=== PATIENT | female | born 1965 | race Caucasian/White ===

== ENCOUNTER 2016-10-02 22:57 | Observation (INO) ==
[2016-10-03 00:07] LABS: Basophils # 0.1 K/mcL (0.0-0.2); Basophils % 0.3 %; Eosinophils % 0.1 %; Hematocrit 36.2 % (35.3-44.9); Hemoglobin 11.9 g/dL (11.5-15.4); Immature Granulocytes % 0.4 % (0-4); Immature Platelets 2.4 % (1.1-6.1); Lymphocytes # 1.6 K/mcL (0.6-4.6); Lymphocytes % 8.2 %; Mean Corpuscular HGB Conc 32.9 g/dL (31.6-35.5); Mean Corpuscular Hemoglobin 26.4 pg (28.0-33.3); Mean Corpuscular Volume 80.4 fL (83.0-100.0); Mean Platelet Volume 9.4 fL (9.4-12.4); Monocytes # 0.6 K/mcL (0.0-1.3); Monocytes % 3.4 %; Neutrophils # 16.5 K/mcL (1.6-8.9); Platelet Count 461 K/mcL (140-400); Segmented Neutrophils % 87.6 %
[2016-10-03 00:17] LABS: INR 1.1; Prothrombin Time 11.8 Seconds (9.4-12.1)
[2016-10-03 00:18] LABS: BUN/Creatinine Ratio 16 (6-26); Blood Urea Nitrogen 13 mg/dL (7-20); Calcium 9.7 mg/dL (8.6-10.8); Carbon Dioxide 23 mEq/L (19-29); Chloride 102 mEq/L (98-109); Glucose 163 mg/dL (70-99); Osmolality,Calculated 290 (280-300); Potassium 3.7 mEq/L (3.5-4.5); Sodium 138 mEq/L (136-145); eGFR For African Americans > 60 (> 60); eGFR For Non-African Americans > 60 (> 60)
[2016-10-03] MEDS ORDERED: Aspirin 81 MG TAB.CHEW PO ONE (00:28)
[2016-10-03] MEDS ORDERED: Nitroglycerin 0.4 MG TAB.SUBL SL ONE (00:28)
[2016-10-03] MEDS ORDERED: Ondansetron 4 MG/2 ML VIAL IVP STA (00:36)
--- NOTE | 2016-10-03 00:37 | Emergency Department Note ---
Disposition Clinical Impression: Chest pain Qualifiers: Chest pain type: unspecified Qualified Code(s): R07.9 - Chest pain, unspecified Disposition: Admitted As Inpatient Chest Pain HPI - General Chief Complaint: ED General Medical Stated Complaint: chest pain Time Seen by Provider: 10/02/16 23:53 Source: patient, family Limitations: no limitations Vital Signs Reviewed: Yes Nursing Notes Reviewed: Yes - History of Present Illness HPI Narrative: Mrs. Montoya, a 51yo female, presents from home by POV. Vertigo, nausea, diaphoresis, bilateral arm heaviness, chest discomfort. Onset 17:30 this evening with vertigo and nausea. At 20:30 this progressed to bilateral arm heaviness with diaphoresis and substernal chest discomfort. Home BP was measured as 175/110. Patient has no history of hypertension. Patient's nausea , diaphoresis, vertigo, arm heaviness, chest discomfort persist to presentation. PMH: GERD. Denies hypertension, hyperlipidemia, CAD. PSH: Cholecystectomy. Family history: Unknown; patient is adopted. Admits: Vertigo, nausea, diaphoresis, chest discomfort, bilateral arm heaviness. Denies: Fever, chills, abdominal pain, changes in bowel or bladder, flank pain, weakness, numbness, tingling, headache, changes in vision. Severity scale (1-10): 0 - Related Data Allergies Allergy/AdvReac Type Severity Reaction Status Date / Time prednisone AdvReac Palpitation Verified 10/02/16 23:04 s All systems ED: reviewed and negative except as stated. (As per history of present illness) Chest Pain PMH - Past Medical History Medical history: Reports: no medical history Psychiatric history: Reports: anxiety - Social History Smoking Status: Never smoker Alcohol use: Reports: none Drug use: Reports: none Physical Exam General: Patient is alert, oriented, is holding an emesis bag with eyes closed. She prefers sitting upright in a chair to Gaurav on the cot. HEENT: No facial asymmetry. Head is normocephalic and atraumatic. Trachea midline. Cardiovascular: Heart regular rate and rhythm without clicks, rubs, gallops, or murmurs. No JVD. PMI nondisplaced. No pedal edema. Respiratory: Symmetric chest rise with good respiratory effort. Bilateral breath sounds are clear without wheezing, crackles, or rhonchi. Abdomen: Bowel sounds present normoactive x-4 quadrants. Abdomen is soft, nondistended, and nontender. No organomegaly noted. Psych: Patient's affect is appropriate for situation. - General Limitations: no limitations General appearance: alert Course Course Narrative: Performed chest pain workup with the addition of several abdominal labs. Will give aspirin, nitroglycerin trial, anti-medic and reevaluate. Patient's story is suspicious for atypical chest pain. She has no knowledge of her family history. Anticipate admission for chest pain rule out. Lab work shows leukocytosis however the remainder of her lab work is unremarkable specifically normal renal function, normal hepatic function, negative lipase, negative troponin. EKG concerning for T-wave inversion in V1, V2, V3. Spoke with patient regarding her findings as well as like clinical concerns for potential ACS and the need for further workup. She agrees to come in to the hospital for continued evaluation. Spoke with Dr. Smith who agrees to accept the patient with admitting diagnosis of chest pain in the intention to rule out ACS. Vital Signs Temperature 97.3 F L 10/02/16 22:59 Pulse Rate 85 10/02/16 22:59 Respiratory Rate 18 10/02/16 22:59 Blood Pressure 154/86 10/02/16 22:59 O2 Sat by Pulse Oximetry 100 10/02/16 22:59 Temperature 97.3 F L 10/02/16 22:59 Pulse Rate 80 10/03/16 01:27 Respiratory Rate 18 10/03/16 04:33 Blood Pressure 117/66 10/03/16 04:33 O2 Sat by Pulse Oximetry 98 10/03/16 01:27 Oxygen Delivery Oxygen Delivery Nasal Cannula Chest Pain - Lab Data Lab results reviewed: Yes I reviewed the patient's lab results. Result diagrams: 10/03/16 00:01 10/03/16 00:01 Lab Results 10/03/16 10/03/16 10/03/16 Range/Units 00:01 00:01 00:01 WBC 18.8 H (4.3-11.1) K/mcL RBC 4.50 (3.82-4.97) M/mcL Hgb 11.9 (11.5-15.4) g/dL Hct 36.2 (35.3-44.9) % MCV 80.4 L (83.0-100.0) fL MCH 26.4 L (28.0-33.3) pg MCHC 32.9 (31.6-35.5) g/dL RDW 14.0 (11.5-14.5) % Plt Count 461 H (140-400) K/mcL MPV 9.4 (9.4-12.4) fL Immature Gran % 0.4 (0-4) % Seg Neutrophils % 87.6 % Lymphocytes % 8.2 % Monocytes % 3.4 % Eosinophils % 0.1 % Basophils % 0.3 % Neutrophils # 16.5 H (1.6-8.9) K/mcL Lymphocytes # 1.6 (0.6-4.6) K/mcL Monocytes # 0.6 (0.0-1.3) K/mcL Eosinophils # 0.0 (0.0-0.6) K/mcL Basophils # 0.1 (0.0-0.2) K/mcL Immature Plt Fraction 2.4 (1.1-6.1) % PT 11.8 (9.4-12.1) Seconds INR 1.1 APTT 35.0 (26.0-36.0) Seconds Sodium 138 (136-145) mEq/L Potassium 3.7 (3.5-4.5) mEq/L Chloride 102 (98-109) mEq/L Carbon Dioxide 23 (19-29) mEq/L BUN 13 (7-20) mg/dL Creatinine 0.82 (0.57-1.11) mg/dL Est GFR ( Amer) > 60 (> 60) Est GFR (Non-Af Amer) > 60 (> 60) BUN/Creatinine Ratio 16 (6-26) Glucose 163 H (70-99) mg/dL Calculated Osmolality 290 (280-300) Calcium 9.7 (8.6-10.8) mg/dL Total Bilirubin 0.4 (0.2-1.2) mg/dL Direct Bilirubin 0.1 (0.0-0.5) mg/dL Indirect Bilirubin 0.3 (0.0-1.2) mg/dL AST 13 (5-34) Units/L ALT < 6 (0-55) Units/L Alkaline Phosphatase 114 (38-126) Units/L Troponin I (0-0.03) ng/mL Serum Total Protein 7.9 (6.0-8.3) g/dL Albumin 4.0 (3.5-5.0) g/dL Globulin 3.9 H (2.4-3.5) g/dL Albumin/Globulin Ratio 1.0 L (1.1-2.2) Lipase 15 (8-78) Units/L 10/03/16 Range/Units 00:01 WBC (4.3-11.1) K/mcL RBC (3.82-4.97) M/mcL Hgb (11.5-15.4) g/dL Hct (35.3-44.9) % MCV (83.0-100.0) fL MCH (28.0-33.3) pg MCHC (31.6-35.5) g/dL RDW (11.5-14.5) % Plt Count (140-400) K/mcL MPV (9.4-12.4) fL Immature Gran % (0-4) % Seg Neutrophils % % Lymphocytes % % Monocytes % % Eosinophils % % Basophils % % Neutrophils # (1.6-8.9) K/mcL Lymphocytes # (0.6-4.6) K/mcL Monocytes # (0.0-1.3) K/mcL Eosinophils # (0.0-0.6) K/mcL Basophils # (0.0-0.2) K/mcL Immature Plt Fraction (1.1-6.1) % PT (9.4-12.1) Seconds INR APTT (26.0-36.0) Seconds Sodium (136-145) mEq/L Potassium (3.5-4.5) mEq/L Chloride (98-109) mEq/L Carbon Dioxide (19-29) mEq/L BUN (7-20) mg/dL Creatinine (0.57-1.11) mg/dL Est GFR ( Amer) (> 60) Est GFR (Non-Af Amer) (> 60) BUN/Creatinine Ratio (6-26) Glucose (70-99) mg/dL Calculated Osmolality (280-300) Calcium (8.6-10.8) mg/dL Total Bilirubin (0.2-1.2) mg/dL Direct Bilirubin (0.0-0.5) mg/dL Indirect Bilirubin (0.0-1.2) mg/dL AST (5-34) Units/L ALT (0-55) Units/L Alkaline Phosphatase (38-126) Units/L Troponin I 0.01 (0-0.03) ng/mL Serum Total Protein (6.0-8.3) g/dL Albumin (3.5-5.0) g/dL Globulin (2.4-3.5) g/dL Albumin/Globulin Ratio (1.1-2.2) Lipase (8-78) Units/L - Radiology Data Radiology results reviewed: Yes I reviewed the patient's radiology results. Chest X-Ray 10/02/16 23:33 IMPRESSION: Normal chest. D/ / Volodymyr Aquino MD / Volodymyr Aquino MD Interpreting Provider: Volodymyr Aquino MD - EKG Data EKG attestation: Yes I reviewed and interpreted this EKG. EKG results narrative: JG data 10/02/16 shows sinus rhythm with a rate of 76. Slightly prolonged [place] interval at 270 ms. QRS 80, QT/QTC 396/426. Normal axis. RSR prime in V1 showing possible right interventricular conduction delay. Inversion in V1 and V2. Compared to previous EKG dated 05/16/2016 showed T-wave changes to be new. Heart Score - Score History: Moderately Suspicious EKG: Non Specific repolarisation Disturbance Age: 45-65 Risk Factors: 1-2 risk factors (default 1 risk factor because family hx unknown) Troponin: Less than normal limit HEART Score Total: 4 Attestation Statement - Attestation Attestation: For this encounter, I have reviewed the resident, RESIDENTIAL ELECTRICIAN, or PA documentation, treatment plan, and medical decision making; and I have had face to face time with this patient. 51-year-old female presents with concerns of chest pain and nausea, vomiting, vertigo. Patient states her chest pain started within the past few hours prior to arrival, was associated with nausea, vomiting, increased weakness and fatigue. Pain described as a pressure in the left chest which radiated to the bilateral arms and is described as a heaviness in the arms. Patient denies recent trauma. Patient states that she has had tenderness intermittently over the past 2 months. Denies vertigo symptoms until today. Vertigo symptoms are described as a room spinning sensation which is worse with movement of her head. Patient does have left beating nystagmus on exam. Patient given meclizine and aspirin for the chest pain and vertiginous symptoms. It is possible that the patient's chest pain is secondary to vomiting however patient is unsure if the chest pain started before or after her periods of emesis. Patient will be admitted for further care and evaluation inpatient comfortable with the plan.
[2016-10-03 00:57] LABS: Alanine Aminotransferase < 6 Units/L (0-55); Alkaline Phosphatase 114 Units/L (38-126); Aspartate Amino Transferase 13 Units/L (5-34); Bilirubin,Direct 0.1 mg/dL (0.0-0.5); Bilirubin,Indirect 0.3 mg/dL (0.0-1.2); Bilirubin,Total 0.4 mg/dL (0.2-1.2); Globulin 3.9 g/dL (2.4-3.5); Lipase 15 Units/L (8-78); Total Protein 7.9 g/dL (6.0-8.3)
[2016-10-03] MEDS ORDERED: Metoclopramide 10 MG/2 ML VIAL IVP ONE (02:33)
[2016-10-03] MEDS ORDERED: Ondansetron 4 MG/2 ML VIAL IVP PRN (06:30)
[2016-10-03] MEDS ORDERED: Acetaminophen 325 MG TABLET PO PRN (06:30)
[2016-10-03] MEDS ORDERED: 0.9 % Sodium Chloride 1,000 ML IVC SCH (06:30)
[2016-10-03] MEDS ORDERED: Naloxone 0.4 MG/ML INJ IVP PRN (06:30)
--- NOTE | 2016-10-03 06:37 | Internal Med History&Physical ---
Date of Encounter: 10/03/16 Time of Encounter: 05:00 Assessment and Plan (1) Benign paroxysmal positional vertigo Current visit: Yes Status: Acute We will treat the patient with meclizine and provide IV fluid hydration. Qualifiers: Laterality: unspecified laterality Qualified Code(s): H81.10 - Benign paroxysmal vertigo, unspecified ear (2) Precordial chest pain Current visit: Yes Status: Acute Will monitor patient on telemetry. Trend troponin. Obtain stress test and echocardiogram. The patient has an unknown family history which potentially puts her at higher risk for a cardiovascular event. (3) Elevated WBCs Current visit: Yes Status: Acute Possible stress response. No sign of infection. We will monitor in the morning. Qualifiers: Leukocytosis type: unspecified Qualified Code(s): D72.829 - Elevated white blood cell count, unspecified (4) Dehydration Current visit: Yes Status: Acute IV normal saline fluid hydration (5) DVT prophylaxis Current visit: Yes Status: Acute Encourage early ambulation. She does not require pharmacological prophylaxis. Internal Medicine - H&P: HPI Chief complaint: Vertigo Admitted From: Emergency Dept Plans for Post Hospital Care: Home History of present illness: Ms. Montoya is a 51 year old female with no significant past medical history who presented to the hospital for severe vertigo which started 6 hours prior to presentation, was described as spinning sensation associated with nausea and vomiting. 2 hours prior to presentation she started experiencing substernal 2/ 10 pressure-like chest discomfort not associated with lightheadedness or shortness of breath. Her symptoms did not improve with rest and therefore she presented to the hospital. She was given meclizine and Phenergan with some improvement in her symptoms. Due to the fact that she has never had a cardiovascular workup she was referred for admission. A 10 point review of systems was negative except as above. She did have a prior episode of benign positional vertigo which had resolved spontaneously. Family history is unknown as the patient is adopted and she does not know her biological parents. Social history the patient denies tobacco alcohol and drug use Past Med Surg Social Fam HX - Past Medical History Medical history: no medical history Psychiatric history: anxiety - Past Surgical History Surgical History: cholecystectomy - Social History Smoking Status: Never smoker Smokeless Tobacco Status: No Alcohol use: none Drug use: none Internal Medicine - H&P: Meds No Known Home Drugs 10/03/16 [History] Allergies prednisone Adverse Reaction (Verified 10/02/16 23:04) Palpitations All Systems PM: A 10-system review of systems was performed and is negative for pertinent findings except as documented above in the HPI. - Constitutional Vitals: Temp Pulse Resp BP Pulse Ox 97.5 F L 79 15 111/60 95 10/03/16 04:52 10/03/16 04:52 10/03/16 04:52 10/03/16 04:52 10/03/16 04:52 General appearance: Present: A&O X 3 - Eye Eye exam: Present: PERRL, conjuntiva pink, sclera anicteric Pupils: Present: PERRL - Respiratory Respiratory exam: Present: CTAB. Absent: accessory muscle use, rales, rhonchi, wheezes - Cardiovascular Cardiovascular exam: Present: RRR, +S1, +S2. Absent: diastolic murmur, gallop, rubs, systolic murmur - GI/Abdominal GI/Abdominal exam: Present: normal bowel sounds, soft, no peritoneal signs. Absent: distended, tenderness - Extremities Exam Extremities exam: Present: warm, radial pulses palpable and symetrical. Absent : calf tenderness, cyanotic, pedal edema - Skin Skin exam: Present: dry, intact Internal Med - H&P Results - Labs CBC & Chem 7: 10/03/16 00:01 10/03/16 00:01
[2016-10-03] MEDS ORDERED: Regadenoson 0.4 MG/5 ML SYRINGE IVP ONE (09:07)
--- NOTE | 2016-10-03 14:12 | Internal Med Progress Note ---
<Hector King - Last Filed: 10/03/16 16:43> Date of Encounter: 10/03/16 Time of Encounter: 11:50 - Assessment and plan (1) Chest pain Current Visit: Yes Status: Acute Assessment and plan: Atypical chest pain. currently chest pain free. She has had a stress test this AM. However results are still pending. Echocardiogram is pending as well. Review of her EKG is Sinus rhythm rate 76 with normal [place] and Normal QTC. QRS is narrow. There are new q waves in V1 and V2 approximately 50 ms in length. These are new when compared to EKG from 05/16/2016. we will repeat her EKG and follow up with Stres test. We will also follow up with her echocardiogram to see if there are any wall motion abnormalities. Qualifiers: Chest pain type: unspecified Qualified Code(s): R07.9 - Chest pain, unspecified (2) Vertigo Current Visit: Yes Status: Acute Assessment and plan: Concerning given that it is still presistant. Also symptoms began following manipulation of the cervicle spine. We will obtain MRI of the head and MRA of the neck to r/o posterior stroke or defect in the posterior circulation. Change Meclizine from PRN to scheduled. continue Zofran PRN. (3) Dehydration Current Visit: Yes Status: Acute Assessment and plan: resolved. eating and drinking on her own. DC IVF (4) Elevated WBCs Current Visit: Yes Status: Acute Assessment and plan: Afebrile Likely reactive. repeat CBC in the AM. Qualifiers: Leukocytosis type: unspecified Qualified Code(s): D72.829 - Elevated white blood cell count, unspecified (5) First degree heart block Current Visit: Yes Status: Acute Assessment and plan: mild OH interval 207 ms. No intervention needed at this time. (6) DVT prophylaxis Current Visit: Yes Status: Acute Assessment and plan: EPCDs - Subjective Interval history: Mrs Montoya is a 51 y.o. female who was admitted for chest pain and alos severe dizzines. She reports that her symptoms began on Sunday. She states that it feels like the room is spinning. She also had sever nausea adn emesis " at least six times" followed by wretching. she then developed midsternal pressure/ discomfort. It was not exacerbated by exertion. It resolved on its own. She is now chest pain free. She denies any trauma to the head but dose admit to having a " rough manipulation" of the neck by her Chiropracter on Sunday. She has no further complaints or concerns at this time. - Constitutional Vitals: Temp Pulse Resp BP Pulse Ox 97.8 F 88 15 128/75 98 10/03/16 11:22 10/03/16 11:22 10/03/16 11:22 10/03/16 11:22 10/03/16 11:22 General appearance: Present: A&O X 3 Exam: General: This is a 51 Year old female who is alert and orientated to person place time and situation. No acute distress. HEENT: Head is normocephalic atraumatic pupils are equally round reactive to light and accommodation, sclera are anicteric, nares are patent, normal external appearance of the nose and ears, the posterior pharynx is pink without cobblestoning or exudate. Uvula is midline, tongue is midline, dentition is intact. Heart: Regular rate and rhythm without murmur rubs or gallops, S1, S2, without S3 or S4. Capillary refills less than 2 seconds. Radial pulses are 2 out of 4 and synchronous. No JVD with inspection of the neck. Lungs: Clear to auscultation bilaterally, normal effort. Abdomen: Bowel sounds are normoactive, no bruits, abdomen is soft, no tenderness to palpation, no organomegaly noted, no guarding throughout the exam. Musculoskeletal: No gross deformity noted, moves all limbs without difficulty. Mild tenderness of the cervical paravertebral musculature. Integument: Cool, dry, normal turgor, no edema. Neuro: Alert, normal mentation, cranial nerves II through XII grossly intact. She has normal upper and lower motor strength bilaterally. She has normal sensation throughout. She has normal cerebellar function as tested through rapid alternating movements of the hands and feet also with finger to nose test. I did not observe her ambulating as she is quite dizzy at this time. Psych: Alert, appropriate affect, cooperates fully with exam Extremities: No clubbing, cyanosis or edema. Internal Medicine: Result - Labs CBC & Chem 7: 10/03/16 00:01 10/03/16 00:01 Labs: Cardiac Enzymes 10/03/16 10/03/16 Range/Units 06:45 12:39 Troponin I 0.01 0.00 (0-0.03) ng/mL - ABG Interpretation ABG results: PT/INR, D-dimer PT 11.8 Seconds (9.4-12.1) 10/03/16 00:01 Consult Discharge Plan - Plan Referrals: Jacob Kinney MD [Primary Care Provider] - <Todd Morris - Last Filed: 10/03/16 16:49> Date of Encounter: 10/03/16 - Constitutional Vitals: Temp Pulse Resp BP Pulse Ox 97.8 F 88 15 128/75 98 10/03/16 11:22 10/03/16 11:22 10/03/16 11:22 10/03/16 11:22 10/03/16 11:22 Internal Medicine: Result - Labs CBC & Chem 7: 10/03/16 00:01 10/03/16 00:01 Labs: Cardiac Enzymes 10/03/16 10/03/16 Range/Units 06:45 12:39 Troponin I 0.01 0.00 (0-0.03) ng/mL - ABG Interpretation ABG results: PT/INR, D-dimer PT 11.8 Seconds (9.4-12.1) 10/03/16 00:01 - Attending Attestation I examined this patient and my medical decision-making was reviewed with the GREEN TIRE INSPECTOR/PA/Advanced Practice Nurse/Resident Physician. I agree with the documented findings, disposition and treatment plan as described except to the extent set forth below. I Agree with Dr. King's note. MRI today. Will follow. D/W patient.
--- NOTE | 2016-10-03 14:42 | Nuclear Medicine Stress Report ---
Regadenoson Nuclear Stress Name: Zhanna Montoya Date of Study: 10/03/2016 Date: 1965 Ht: 62.0 in Medical Record#: [id number] Age: 51 Wt: 180.0 lb Gender: Female Order #: [id number] Location: [facility] OP Room: Supervising Provider: Jose Germain CNP Reading Physician: Khadijah Chamorro DO Ordering Physician: Keysha Lomeli CNP Primary Care Physician: Jacob Kinney MD Stress Technologist: Heydi Etienne APPEALS RN, CCT Rig Mechanic: Estefani Gandara Indications: Chest Pain Impression: Perfusion imaging was negative for ischemia or infarct. Pharmacologic ECG was negative for ischemia at the level of heart rate achieved. Gated EF = >70%. Stress Test Summary: Stress Test Type: Pharmacologic Regadenoson 0.4mg/5ml given IV Baseline Information: Initial Heart Rate: 94 Blood Pressure: 142/82 Stress Information: Test Terminated Due to (primary): As per protocol Maximum Blood Pressure: 150/80 Maximum Heart Rate: 130 Percent Maximum Heart Rate Achieved: 77 Double Product: [id number] METS Reached: 1 Symptoms: Dizziness Nuclear Summary: SPECT myocardial perfusion imaging using Tc99m Sestamibi given intravenously was performed at rest and following cardiac stress testing. The resting images were obtained following initial dose of 10.1 mCi. Following stress an additional dose of 35.1 mCi was given at peak exercise or 30 seconds post regadenoson infusion. Medication Given: Time Medication Dose Units Route Findings: Stress Note * Resting ECG demonstrated normal sinus rhythm. * Pharmacologic stress ECG is negative for ischemia at level of heart rate achieved. * No arrhythmias were noted during stress. * Patient had no chest pain during stress. Hemodynamic responses * Normal hemodynamic responses to pharmacologic stress. Study Quality * Study quality is good. Gated EF > 70% * Gated EF > 70%. Left Ventricle * The left ventricle is not dilated. TID * No evidence of transient ischemic dilatation. Lung Uptake * There is no evidence of increase lung uptake. NORMALS * Normal wall motion. * Normal segmental perfusion in stress. * Normal Segmental Perfusion in rest. Updated by Khadijah Chamorro on 10/03/2016 2:35:15 PM electronically signed on 10/03/2016 2:36:11 PM with status of Final
--- NOTE | 2016-10-03 17:22 | Electrocardiograph Report ---
[address] [address] Test Date: 2016-10-02 Pat Name: Zhanna Montoya Department: 105 Room: 3B Gender: F [employer] Machine Tender: : 1965 Requested By: Vazquez Chavez Order Number: [id number] Reading MD: Rosita Claire Measurements Intervals Higgins Rate: 76 P: 52 HI: 207 QRS: 26 QRSD: 80 T: 14 QT: 396 QTc: 426 Interpretive Statements SINUS RHYTHM LOW QRS VOLTAGE IN PRECORDIAL LEADS [QRS DEFLECTION < 1.0 mV IN CHEST LEADS] Electronically Signed On 10-03-2016 17:20:51 EST by Rosita Claire
[2016-10-04 04:52] LABS: Basophils # 0.1 K/mcL (0.0-0.2); Basophils % 0.6 %; Eosinophils # 0.3 K/mcL (0.0-0.6); Eosinophils % 3.6 %; Hematocrit 34.2 % (35.3-44.9); Hemoglobin 10.7 g/dL (11.5-15.4); Immature Granulocytes % 0.4 % (0-4); Mean Corpuscular HGB Conc 31.3 g/dL (31.6-35.5); Mean Platelet Volume 9.6 fL (9.4-12.4); Monocytes # 0.6 K/mcL (0.0-1.3); Monocytes % 7.1 %; Platelet Count 389 K/mcL (140-400); Red Blood Count 4.12 M/mcL (3.82-4.97); Red Cell Distribution Width 14.5 % (11.5-14.5); Segmented Neutrophils % 50.3 %
[2016-10-04 05:14] LABS: BUN/Creatinine Ratio 18 (6-26); Blood Urea Nitrogen 14 mg/dL (7-20); Calcium 8.9 mg/dL (8.6-10.8); Carbon Dioxide 25 mEq/L (19-29); Chloride 108 mEq/L (98-109); Chol/HDL Ratio 4.4 (0-4.9); Cholesterol 182 mg/dL (< 200); Glucose 96 mg/dL (70-99); HDL Cholesterol 41 mg/dL (40-59); LDL Cholesterol,Calculated 116 mg/dL (0-99); Osmolality,Calculated 294 (280-300); Potassium 3.7 mEq/L (3.5-4.5); Sodium 142 mEq/L (136-145); Triglycerides 124 mg/dL (< 150); eGFR For African Americans > 60 (> 60); eGFR For Non-African Americans > 60 (> 60)
--- NOTE | 2016-10-04 06:43 | Discharge Summary ---
<Hector King - Last Filed: 10/04/16 08:47> Date of Encounter: 10/04/16 Time of Encounter: 06:40 - Discharge Diagnosis (1) Chest pain Priority: Primary Status: Acute Comments: atypical Likely from multiple emesis and wretching Qualifiers: Chest pain type: unspecified Qualified Code(s): R07.9 - Chest pain, unspecified (2) Vertigo Priority: Primary Status: Acute Comments: likely BPPV. No evidence of Neurologic injury. will send with meclizine and zofran. (3) Dehydration Priority: Secondary Status: Acute Comments: resolved. tolerating PO (4) Elevated WBCs Priority: Secondary Status: Acute Comments: reactive resolved Qualifiers: Leukocytosis type: unspecified Qualified Code(s): D72.829 - Elevated white blood cell count, unspecified (5) First degree heart block Priority: Secondary Status: Acute - Discharge Medications Prescriptions: Meclizine [Antivert] 25 mg PO TID PRN 30 Days PRN Reason: FOR VERTIGO Ondansetron HCl [Zofran] 4 mg PO Q8H PRN #21 tablet PRN Reason: Nausea Home Medications: Meclizine [Antivert] 25 mg PO TID PRN 30 Days 10/04/16 [Rx] Ondansetron HCl [Zofran] 4 mg PO Q8H PRN #21 tablet 10/04/16 [Rx] Allergies/Adverse Reactions: Allergies prednisone Adverse Reaction (Verified 10/03/16 07:44) Palpitations Procedures/tests Complete & Pending: Procedures Performed prior 72 hours Category Date Time Status NM lance perf SPECT multi [NM] Routine Exams 10/03/16 06:33 Taken MR angio head wo con [MR] Routine MRI 10/03/16 14:06 Completed MR angio neck wo/w con [MR] Routine MRI 10/03/16 14:06 Completed MR head/brain wo con [MR] Routine MRI 10/03/16 14:06 Completed EKG [ECG 12 lead ECG] [ECG] Routine Y 10/03/16 14:37 Ordered EV echocardiogram Routine Y 10/03/16 06:33 Completed SP pharm nuclear stress Routine Y 10/03/16 08:00 Completed Date of admission: 10/03/16 03:45 Primary care physician: Jacob Kinney MD Discharging clinician: Hector King Anticipated date of discharge: 10/04/16 - Patient Status Disposition: Home, Self-Care Condition: Good Functional capacity at discharge: independent ambulation Overall status at discharge: patient is progressing back to baseline - Discharge Instructions Instructions: Meclizine (By mouth), Ondansetron (By mouth), Chest Pain (DC), Vertigo (DC) Follow Up With: Jacob Kinney MD [Primary Care Provider] - 10/09/16 2:00 pm - Diet and Activity Activity: increase activity as tolerated Diet: advance to your usual diet Hospital course: Ms. Montoya is a 51 year old female who was admitted with chest pain, dehydration, and vertigo. this was atypical chest pain as it occured after a wretching episode. Her Vertigo was positional. She would undergo MRI/ MRa of the head and neck. there was concern for possible vertibral artery dissection given the onset of her symptoms began the day after having her cervicle spine manipulated. MRI showed no acute abnormalities. She had a stress test which showed no acute abnormalities. Echocardiogram is pending but she did have normal EF on her stress test. We will follow up with this results and call her if there are any abnormalities. Today her symptoms have resolved. Vitals are stable. Leukocytosis on admission was likely reactive as it has resolved. She is tolerating a diet. Her vital signs are within normal limits . We will discharge her today. - Time Spent with Patient Total time spent providing and/or coordinating discharge services: Greater than 30 minutes (approximately 35 minutes) - Constitutional Vitals: Temp Pulse Resp BP Pulse Ox 97.9 F 63 12 118/75 96 10/04/16 03:42 10/04/16 03:42 10/04/16 03:42 10/04/16 03:42 10/04/16 03:42 General appearance: Present: A&O X 3 - Head Head exam: Present: atraumatic, normocephalic - Eye Eye exam: Present: PERRL, conjuntiva pink, sclera anicteric Pupils: Present: PERRL - Neck Neck exam general surgery: Present: supple, trachea midline. Absent: lymphadenopathy - Respiratory Respiratory exam: Present: CTAB. Absent: accessory muscle use, rales, rhonchi, wheezes - Cardiovascular Cardiovascular exam: Present: RRR, +S1, +S2. Absent: diastolic murmur, gallop, rubs, systolic murmur - GI/Abdominal GI/Abdominal exam: Present: normal bowel sounds, soft, no peritoneal signs. Absent: distended, tenderness - Extremities Exam Extremities exam: Present: warm, radial pulses palpable and symetrical. Absent : calf tenderness, cyanotic, pedal edema - Neurological Exam Neurological exam: Present: CN II-XII intact, oriented X3, no focal deficits - Skin Skin exam: Present: dry, intact <Todd Morris Rush - Last Filed: 10/04/16 14:10> Date of Encounter: 10/04/16 Procedures/tests Complete & Pending: Procedures Performed prior 72 hours Category Date Time Status NM lance perf SPECT multi [NM] Routine Exams 10/03/16 06:33 Taken MR angio head wo con [MR] Routine MRI 10/03/16 14:06 Completed MR angio neck wo/w con [MR] Routine MRI 10/03/16 14:06 Completed MR head/brain wo con [MR] Routine MRI 10/03/16 14:06 Completed EKG [ECG 12 lead ECG] [ECG] Routine Y 10/03/16 14:37 Completed EV echocardiogram Routine Y 10/03/16 06:33 Completed SP pharm nuclear stress Routine Y 10/03/16 08:00 Completed Date of admission: 10/03/16 03:45 Primary care physician: Jacob Kinney MD Hospital course: Ms. Montoya is a 51 year old female - Time Spent with Patient Total time spent providing and/or coordinating discharge services: - Constitutional Vitals: Temp Pulse Resp BP Pulse Ox 97.7 F 69 18 130/68 96 10/04/16 07:27 10/04/16 07:27 10/04/16 07:27 10/04/16 07:27 10/04/16 07:27 - Attending Attestation I examined this patient and my medical decision-making was reviewed with the PACKAGING INSPECTOR/PA/Advanced Practice Nurse/Resident Physician. I agree with the documented findings, disposition and treatment plan as described except to the extent set forth below. Vertigo, likely peripheral. No significant abnormalities in the MRI/MRA. Chest pain resolved. Stable, will discharge patient home today. She expressed understanding.
[2016-10-04 07:29] VITALS: BP 130/68
--- NOTE | 2016-10-04 10:01 | ECHO - Doppler Report ---
Echocardiogram Name: Zhanna Montoya Date of Study: 10/03/2016 Date: 1965 Ht: 62.0 in Medical Record#: [id number] Age: 51 Wt: 180.0 lb Gender: Female BSA: 1.83 Order #: [id number] Location: [facility] Room #: [facility] Reading Physician: Khadijah Chamorro DO Materials Recycler: Izzy Epstein RDCS Ordering Physician: Jameel Rivas MD Primary Physician: Jacob Kinney MD Indications: Chest pain Impressions: LVEF 60%. Normal left ventricular size and systolic function. Normal diastolic function of the left ventricle. Normal right ventricular size and function. No significant valvular dysfunction. No pulmonary hypertension. Left Ventricular Wall Motion: Rest Echo Findings All wall segments showed normal motion. Findings: Study Quality * Technically adequate exam. ECG Findings * Normal sinus rhythm. Left Ventricle * LVEF 60%. * Normal LV chamber size, wall thickness and function. * Normal left ventricular diastolic function. Aortic Valve * Aortic valve not well visualized. * No aortic stenosis. * Trace aortic regurgitation. Mitral Valve * No mitral regurgitation. * Normal mitral valve structure. * No mitral stenosis. Tricuspid Valve * Tricuspid valve not well visualized. * No tricuspid regurgitation. Pulmonic Valve * Pulmonic valve is not well visualized. * No pulmonic stenosis. * No pulmonic regurgitation. Pulmonary Artery * Pulmonary artery not well visualized. Right Ventricle * Normal right ventricular structure and function. Left Atrium * Normal left atrial size. Right Atrium * Normal right atrial size. Interatrial Septum * Interatrial septum not well evaluated. IVC * The IVC is not dilated. Pericardium * There is no pericardial effusion present. Aorta * Normally sized aortic root. History Measurements: BP: 128/ 75 2D Normal Values IVSd: .77 cm 0.6 - 1.0 cm LVIDd: 4.66 cm 3.7 - 5.6 cm LVPWd: .84 cm 0.6 - 1.1 cm LVIDs: 2.67 cm 1.5 - 3.6 cm AO: 2.50 cm < 4.0 cm LA: 3.00 cm 2.0 - 4.0cm %FS: 42.70 cm >25 % LA volume: 28 Mitral Valve Peak E:.96 m/sec Peak A:.94 m/sec E/A Ratio:1 Peak E' Lat Tono:11.3 cm/s Peak E' Med Tono:11.2 cm/s E/E' Lat Ratio:8.5 E/E' Med Ratio:8.6 Aortic Valve AI pressure Half-time: 617.00 msec Updated by Khadijah Chamorro on 10/04/2016 9:56:19 AM electronically signed on 10/04/2016 9:56:54 AM with status of Final Wall Motion Cooper: 1=Normal, 2=Hypokinesis, 3=Akinesis, 4=Dyskinesis, 5=Aneurysmal, 6=Hyperkinetic, X=Not Visualized (Blank)=Missing
--- NOTE | 2016-10-05 17:41 | Electrocardiograph Report ---
[place] [id number] Test Date: 2016-10-03 Pat Name: Zhanna Montoya Department: 113 Room: 3B Gender: F Solid Waste Manager: : 1965 Requested By: Hector King Order Number: [id number] Reading MD: Vazquez Claire Measurements Intervals [place] Rate: 80 P: 12 LA: 197 QRS: 23 QRSD: 81 T: 29 QT: 358 QTc: 393 Interpretive Statements SINUS RHYTHM LOW QRS VOLTAGE IN PRECORDIAL LEADS Electronically Signed On 10-05-2016 17:40:27 EST by Vazquez Claire
== END 2016-10-04 09:28 | disposition home or self-care (01) ==
LOC: 3BNU 22:57 → EMEROO 22:57 → SUATTDRO 10-03 03:45 → 3BNU 10-03 04:35
PROVIDERS: ADMIT Internal Medicine; ATTEND Internal Medicine